=== PATIENT | female | born 1970 | race African-American/Black ===

== ENCOUNTER 2016-06-02 14:17 | Emergency (ER) | payer MEDICAID ==
[~2016-06-02] VITALS: Ht 177.8 cm; Wt 85.0 kg
[2016-06-02] MEDS ORDERED: TETRACAINE 0.5% OPHTH DROPS 2ML BOTHEYE ONE (15:15)
[2016-06-02 16:15] LABS: BASOPHILS % 0.6 % (0.0-2.0); EOSINOPHILS % 3.3 % (0.0-5.0); HEMATOCRIT. 33.2 % (36.0-48.0); LYMPHOCYTES % 48.3 % (20.0-50.0); MEAN CORPUSCULAR HEMOGLOBIN 29.5 pg (28.0-32.0); MEAN CORPUSCULAR HGB CONC 33.2 g/dL (31.0-37.0); MEAN CORPUSCULAR VOLUME 88.7 fL (81.0-99.0); MEAN PLATELET VOLUME 7.6 fl (7.4-10.4); MONOCYTES % 5.1 % (2.0-8.0); NEUTROPHILS % 42.7 % (40.0-76.0); PLATELET 223 x1000/uL (130-400); RED BLOOD CELL COUNT 3.75 mill/uL (4.2-5.4); WHITE BLOOD COUNT 3.9 x1000/uL (4.5-11.0)
[2016-06-02 16:22] LABS: ANION GAP 11; CALCIUM 8.5 mg/dL (8.5-10.1); CARBON DIOXIDE 29 mEq/L (21-32); CHLORIDE 107 mEq/L (98-107); INDEX HEMOLYSI 1 (1-3); INDEX ICTERIC 1 (1-4); INDEX LIPEMIC 1 (1-3); UREA NITROGEN BLOOD 10 mg/dL (7-21); eGFR > 60 mL/min (>60)
[2016-06-02 16:23] LABS: HCG SCREEN NEGATIVE
[2016-06-02 17:43] VITALS: BP 124/72
== END 2016-06-02 17:44 | disposition home or self-care (01) ==
LOC: ER 15:44
DX: H53.8 Other visual disturbances (principal); R51 Headache; R25.2 Cramp and spasm; F17.200 Nicotine dependence, unspecified, uncomplicated; F12.10 Cannabis abuse, uncomplicated; Z98.890 Other specified postprocedural states
CPT/HCPCS: 36415; 70450; 80048; 82962; 84703; 85025; 85651; 93005; 99285

== ENCOUNTER 2016-11-03 10:40 | Emergency (ER) | payer MEDICAID ==
[~2016-11-03] VITALS: Ht 177.8 cm; Wt 87.0 kg
[~2016-11-03 10:40] MED LIST: DULO60CA44 PO
[2016-11-03 10:44] VITALS: BP 121/79
== END 2016-11-03 14:24 | disposition home or self-care (01) ==
LOC: ER 10:40
DX: R21 Rash and other nonspecific skin eruption (principal); L29.9 Pruritus, unspecified
CPT/HCPCS: 99283

== ENCOUNTER 2019-05-27 08:41 | Emergency (ER) | payer MEDICAID ==
[~2019-05-27] VITALS: Ht 177.8 cm; Wt 94.3 kg
[2019-05-27] MEDS ORDERED: KETOROLAC 60MG/2ML VIAL IM ONE (10:45)
[2019-05-27 10:55] VITALS: BP 164/100
== END 2019-05-27 11:59 | disposition home or self-care (01) ==
LOC: ER 08:41
DX: R51 Headache (principal); Z87.39 Personal history of other diseases of the musculoskeletal system and connective tissue
CPT/HCPCS: 96372; 99283; J1885